=== PATIENT | female | born 1960 | race Caucasian/White ===

== ENCOUNTER 2019-02-03 17:41 | Emergency (ER) | payer OTHER ==
[~2019-02-03] VITALS: Ht 162.6 cm; Wt 75.7 kg
[2019-02-03 18:00] VITALS: BP_SYST 157
[2019-02-03] MEDS ORDERED: KETOROLAC TROMETHAMINE 60 MG/2 ML VIAL IM ONE (21:00)
[2019-02-03] MEDS ORDERED: traMADol HCL HCL 50 MG TABLET (ULTRAM) PO ONE ×2 (22:45→23:00)
[2019-02-03 22:50] VITALS: BP_SYST 140
== END 2019-02-03 22:50 | disposition home or self-care (01) ==
LOC: SED 17:41
DX: M54.40 Lumbago with sciatica, unspecified side (principal); G89.29 Other chronic pain; Z88.8 Allergy status to other drugs, medicaments and biological substances; W01.0XXA Fall on same level from slipping, tripping and stumbling without subsequent striking against object, initial encounter; Y93.89 Activity, other specified; Y92.89 Other specified places as the place of occurrence of the external cause; Y99.8 Other external cause status
CPT/HCPCS: 72192; 96372; 99284; J1885